=== PATIENT | female | born 1970 | race Two or more races ===

== ENCOUNTER 2017-08-06 05:52 | Day surgery (SDC) | payer OTHER ==
[2017-08-06] MEDS ORDERED: LIDOCAINE 2% (SDV) 5 ML INJ (07:00)
[2017-08-06] MEDS ORDERED: ONDANSETRON 4 MG INJ (07:00)
[2017-08-06] MEDS ORDERED: DEXAMETHASONE 4 MG/ML 1 ML INJ (08:11)
[2017-08-06] MEDS ORDERED: PROPOFOL 100 ML (08:11)
[2017-08-06] MEDS ORDERED: CEFAZOLIN 1 GM INJ (08:48)
[2017-08-06] MEDS ORDERED: hydrALAzine 20 MG INJ IV (09:30)
[2017-08-06] MEDS ORDERED: METOCLOPRAMIDE 10 MG INJ IV (09:30)
[2017-08-06] MEDS ORDERED: EPHEDrine SULFATE 50 MG/5 ML SYG IV (09:30)
[2017-08-06] MEDS ORDERED: ONDANSETRON 4 MG INJ IV (09:30)
[2017-08-06] MEDS ORDERED: OXYCODONE/ACETAMINOPHEN (5/325) TAB PO ×2 (09:30)
[2017-08-06] MEDS ORDERED: ALBUTEROL 0.083% (NEB) 2.5 MG/3 ML AMP HHN (09:30)
[2017-08-06] MEDS ORDERED: DIPHENHYDRAMINE 50 MG INJ IV (09:30)
[2017-08-06] MEDS ORDERED: LABETALOL HCL 20MG INJ IV (09:30)
[2017-08-06] MEDS ORDERED: MEPERIDINE 25 MG INJ IV (09:30)
[2017-08-06] MEDS ORDERED: FENTAnyl 50 MCG/ML VIAL IV ×3 (09:30)
[2017-08-06] MEDS ORDERED: KETOROLAC 30 MG INJ IV (09:30)
== END 2017-08-06 11:30 | disposition home or self-care (01) ==
LOC: SDS 05:52
DX: N92.1 Excessive and frequent menstruation with irregular cycle (principal); N88.2 Stricture and stenosis of cervix uteri; E66.9 Obesity, unspecified; Z68.30 Body mass index [BMI] 30.0-30.9, adult
CPT/HCPCS: 58558; 86850; 86900; 86901; 86920; 88305